=== PATIENT | female | born 1945 | race Caucasian/White ===

== ENCOUNTER 2018-10-21 15:35 | Emergency (ER) | payer MEDICARE ==
[~2018-10-21] VITALS: Ht 160 cm; Wt 52.6 kg
[2018-10-21] MEDS ORDERED: SODIUM CHLORIDE FLUSH 10ML SYR IVF ONE (16:00)
[2018-10-21] MEDS ORDERED: ONDANSETRON 2MG/ML, 2ML IVPush ONE (16:00)
[2018-10-21] MEDS ORDERED: MORPHINE SULFATE 4 MG/ML, 1ML IVPush PRN (16:00)
[2018-10-21] MEDS ORDERED: ONDANSETRON 2MG/ML, 2ML ONE (16:12)
[2018-10-21] MEDS ORDERED: MORPHINE SULFATE 4 MG/ML, 1ML ONE (16:13)
--- NOTE | 2018-10-21 16:23 | NUR ---
PT BIB [facility] WITH FRIEND FOR LEFT SIDED HIP SINCE YESTERDAY. WHEN ASKED TO POINT TO THE SITE OF THE PAIN, PT POINTS TO LEFT FLANK AREA THEN MIGRATED DOWN TO LEFT HIP. PT DENEIS ANY URINARY SYMPTOMS, ABD PAIN, N/V/D, OR ANF FEVERS/CHILLS. PT MEDICATED ORDERED.
[2018-10-21 16:27] LABS: BASOPHILS # (AUTO) 0.02 x10^3/uL (0-0.1); BASOPHILS % (AUTO) 0 % (0-1); EOSINOPHILS # (AUTO) 0.07 x10^3/uL (0-0.4); EOSINOPHILS % (AUTO) 1 % (1-7); LYMPHOCYTES # (AUTO) 0.96 x10^3/uL (1-3.4); LYMPHOCYTES % (AUTO) 13 % (22-44); MD NO; MEAN CORPUSCULAR HEMOGLOBIN 32.4 pg (27.0-34.8); MEAN CORPUSCULAR HGB CONC 33.3 g/dL (32.4-35.8); MEAN CORPUSCULAR VOLUME 97.3 fL (80-100); MEAN PLATELET VOLUME 10.3 fL (7.4-10.4); MONOCYTES # (AUTO) 0.44 x10^3/uL (0.2-0.8); MONOCYTES % (AUTO) 6 % (2-9); NEUTROPHILS # (AUTO) 6.02 x10^3/uL (1.8-6.8); NEUTROPHILS % (AUTO) 80 % (42-75); PLATELET COUNT 183 x10^3/uL (130-400)
[2018-10-21 16:30] LABS: ALANINE AMINOTRANSFERASE 17 U/L (12-78); ALBUMIN 4.3 g/dL (3.4-5.0); ANION GAP 10 mmol/L (5-15); CALCIUM 9.4 mg/dL (8.5-10.1); CHLORIDE 109 mmol/L (98-107)
[2018-10-21 16:33] LABS: ALKALINE PHOSPHATASE 88 U/L (45-117); CREATININE 0.68 mg/dL (0.55-1.02)
[2018-10-21] MEDS ORDERED: OMNIPAQUE 350 MG/ML, 100ML BOTTLE ONE (17:11)
--- NOTE | 2018-10-21 17:25 | NUR ---
PT BACK FROM CT AND ATTEMPTING UA SPECIMEN.
--- NOTE | 2018-10-21 17:32 | NUR ---
TASK RN: 2L NC PLACED FOR RA O2 SAT OF 89%. ALL VSS ON 2LNC. NO NEEDS EXPRESSED. CALL LIGHT WITHIN REACH. AWAITING CT.
--- NOTE | 2018-10-21 17:59 | NUR ---
task rn: edmd present for extensive discussion of test results. pt declining admit at this time. edmd will initiate a palliative care consult with follow up at home. plan to dc.
[2018-10-21 18:12] LABS: MICROSCOPIC NOT IND
[2018-10-21 18:16] LABS: CULTURE INDICATED? NO
[2018-10-21 18:28] VITALS: BP 156/79
== END 2018-10-21 18:42 | disposition home or self-care (01) ==
LOC: ED 17:41
DX: R19.00 Intra-abdominal and pelvic swelling, mass and lump, unspecified site (principal); R10.9 Unspecified abdominal pain; Z90.710 Acquired absence of both cervix and uterus
CPT/HCPCS: 36415; 74177; 80053; 81003; 83690; 85025; 96374; 96375; 99284; J2270; J2405; Q9967

== ENCOUNTER 2019-08-28 17:24 | Emergency (ER) | payer MEDICARE ==
[~2019-08-28] VITALS: Ht 160 cm; Wt 54.7 kg
[2019-08-28 17:28] VITALS: BP 159/74
[2019-08-28] MEDS ORDERED: [UNRECOGNIZED DRUG - OTHER] PO (17:50)
--- NOTE | 2019-08-28 18:33 | NUR ---
PT LAYING IN BED, IV ACCESS ESTABLISHED, VSS, FRIEND REMAINS AT BEDSIDE.
[2019-08-28 18:48] LABS: BASOPHILS # (AUTO) 0.02 x10^3/uL (0-0.1); BASOPHILS % (AUTO) 0 % (0-1); EOSINOPHILS % (AUTO) 3 % (1-7); LYMPHOCYTES # (AUTO) 0.94 x10^3/uL (1-3.4); LYMPHOCYTES % (AUTO) 16 % (22-44); MD NO; MEAN CORPUSCULAR HEMOGLOBIN 31.7 pg (27.0-34.8); MEAN CORPUSCULAR VOLUME 96.1 fL (80-100); MEAN PLATELET VOLUME 9.8 fL (7.4-10.4); MONOCYTES # (AUTO) 0.42 x10^3/uL (0.2-0.8); MONOCYTES % (AUTO) 7 % (2-9); NEUTROPHILS # (AUTO) 4.43 x10^3/uL (1.8-6.8); NEUTROPHILS % (AUTO) 74 % (42-75); PLATELET COUNT 218 x10^3/uL (130-400); RED BLOOD COUNT 4.27 x10^6/uL (3.82-5.3); RED CELL DISTRIBUTION WIDTH 13.9 % (9.6-15.2)
[2019-08-28 18:55] LABS: ALANINE AMINOTRANSFERASE 16 U/L (12-78); ALBUMIN 3.7 g/dL (3.4-5.0); ANION GAP 7 mmol/L (5-15); CALCIUM 9.7 mg/dL (8.5-10.1); CHLORIDE 107 mmol/L (98-107)
[2019-08-28 18:58] LABS: ALKALINE PHOSPHATASE 98 U/L (45-117); BILIRUBIN,TOTAL 0.7 mg/dL (0.2-1.0); CREATININE 0.73 mg/dL (0.55-1.02); TOTAL PROTEIN 8.8 g/dL (6.4-8.2)
[2019-08-28] MEDS ORDERED: SODIUM CHLORIDE FLUSH 10ML SYR IVF ONE (19:00)
--- NOTE | 2019-08-28 19:00 | NUR ---
PT SITTING IN BED, NO SIGNS OF DISTRESS, FRIEND REMAINS AT BEDSIDE.
--- NOTE | 2019-08-28 19:03 | NUR ---
Report received from YG Ohara. This RN to assume care. Patient resting in [facility] with no complaints. Awaiting CT.
--- NOTE | 2019-08-28 20:13 | NUR ---
Discharge instructions given. All questions and concerns addressed. Patient ambulatory with a steady gait. Belongings with patient.
[2019-08-28] MEDS ORDERED: OMNIPAQUE 350 MG/ML, 100ML BOTTLE ONE (21:44)
== END 2019-08-28 20:14 ==
LOC: ED 20:08
DX: C76.8 Malignant neoplasm of other specified ill-defined sites (principal)
CPT/HCPCS: 36415; 74177; 80053; 85025; 99285; Q9967

== ENCOUNTER 2019-09-12 08:10 | Outpatient (CLI) | payer MEDICARE ==
[~2019-09-12 08:10] MED LIST: [UNRECOGNIZED DRUG - OTHER] PO
== END 2019-09-12 23:59 | disposition home or self-care (01) ==
LOC: WOUND 08:10
PROVIDERS: ATTEND Internal Medicine
DX: L89.143 Pressure ulcer of left lower back, stage 3 (principal); C64.1 Malignant neoplasm of right kidney, except renal pelvis; E44.0 Moderate protein-calorie malnutrition; Z90.49 Acquired absence of other specified parts of digestive tract
CPT/HCPCS: 97597; G0463; 99215

== ENCOUNTER → 2019-09-19 | Outpatient (CLI) | payer MEDICARE | END | disposition home or self-care (01) | LOC: WOUND 08:41 | PROVIDERS: ATTEND Internal Medicine | DX: L89.143 Pressure ulcer of left lower back, stage 3 (principal); L89.893 Pressure ulcer of other site, stage 3; E44.0 Moderate protein-calorie malnutrition; C64.1 Malignant neoplasm of right kidney, except renal pelvis; Z68.21 Body mass index [BMI] 21.0-21.9, adult; Z90.49 Acquired absence of other specified parts of digestive tract | CPT/HCPCS: 97597 ==

== ENCOUNTER → 2019-09-21 | Outpatient (CLI) | payer MEDICARE ==
[~2019-09-21] MED LIST changes: +FURO-93 PO; +OXYC-302 PO; +POTA10CA PO
== END | disposition home or self-care (01) ==
LOC: CFH 09:46
PROVIDERS: ATTEND Internal Medicine Cardiovascular Disease
DX: I08.8 Other rheumatic multiple valve diseases (principal); E07.9 Disorder of thyroid, unspecified; R91.1 Solitary pulmonary nodule; N28.89 Other specified disorders of kidney and ureter
CPT/HCPCS: 78815; 93306; A9552

== ENCOUNTER 2019-09-22 07:17 | Day surgery (SDC) | payer MEDICARE ==
[~2019-09-22] VITALS: Ht 160 cm; Wt 53.8 kg
[~2019-09-22 07:17] MED LIST changes: -FURO-93 PO; -OXYC-302 PO; -POTA10CA PO
[2019-09-22 07:54] VITALS: BP 120/72
[2019-09-22] MEDS ORDERED: FURO-93 PO (07:57)
[2019-09-22] MEDS ORDERED: POTA10CA PO (07:57)
[2019-09-22] MEDS ORDERED: OXYC-302 PO (07:57)
[2019-09-22] MEDS ORDERED: SODIUM CHLORIDE 0.9% 1,000 ML IV SCH (08:30)
[2019-09-22] MEDS ORDERED: LIDOCAINE 1%, 10ML ONE (08:48)
== END 2019-09-22 10:35 | disposition home or self-care (01) ==
LOC: OUT 07:17 → EDSTATUS 09:00 → OUT 10:35
PROVIDERS: ATTEND Family Medicine
DX: R22.2 Localized swelling, mass and lump, trunk (principal); Z79.891 Long term (current) use of opiate analgesic; Z85.3 Personal history of malignant neoplasm of breast; Z85.068 Personal history of other malignant neoplasm of small intestine; Z90.710 Acquired absence of both cervix and uterus; Z90.722 Acquired absence of ovaries, bilateral
CPT/HCPCS: 20206; 76942; 88305; 88341; 88342; J7030

== ENCOUNTER → 2019-09-26 | Outpatient (CLI) | payer MEDICARE ==
[~2019-09-26] MED LIST changes: +FURO-93 PO; +OXYC-302 PO; +POTA10CA PO
== END | disposition home or self-care (01) ==
LOC: WOUND 09:02
PROVIDERS: ATTEND Internal Medicine
DX: L89.143 Pressure ulcer of left lower back, stage 3 (principal); L89.893 Pressure ulcer of other site, stage 3; E44.0 Moderate protein-calorie malnutrition; C64.1 Malignant neoplasm of right kidney, except renal pelvis; Z68.21 Body mass index [BMI] 21.0-21.9, adult; Z90.49 Acquired absence of other specified parts of digestive tract
CPT/HCPCS: 97597; 97598

== ENCOUNTER 2019-09-28 05:03 | Emergency (ER) | payer MEDICARE ==
[~2019-09-28] VITALS: Ht 160 cm; Wt 54.0 kg
--- NOTE | 2019-09-28 05:23 | NUR ---
Patient presents to ER c/o nausea. Patient states around 0400 patient awoke with her heart racing and nausea. The heart racing has since resolved. Patient denies CP or abd pain. 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
[2019-09-28] MEDS ORDERED: ONDANSETRON 2MG/ML, 2ML ONE (05:32)
[2019-09-28] MEDS ORDERED: ONDANSETRON ODT 4 MG PO ONE (06:00)
[2019-09-28] MEDS ORDERED: ONDANSETRON 2MG/ML, 2ML IVPush ONE (06:00)
[2019-09-28] MEDS ORDERED: SODIUM CHLORIDE 0.9%, 500ML IVBOLUS ONE (06:00)
[2019-09-28 06:03] LABS: BASOPHILS # (AUTO) 0.02 x10^3/uL (0-0.1); BASOPHILS % (AUTO) 0 % (0-1); EOSINOPHILS # (AUTO) 0.15 x10^3/uL (0-0.4); EOSINOPHILS % (AUTO) 3 % (1-7); LYMPHOCYTES # (AUTO) 0.84 x10^3/uL (1-3.4); LYMPHOCYTES % (AUTO) 14 % (22-44); MD NO; MEAN CORPUSCULAR HEMOGLOBIN 31.2 pg (27.0-34.8); MEAN CORPUSCULAR HGB CONC 32.6 g/dL (32.4-35.8); MEAN CORPUSCULAR VOLUME 95.8 fL (80-100); MEAN PLATELET VOLUME 9.3 fL (7.4-10.4); MONOCYTES # (AUTO) 0.39 x10^3/uL (0.2-0.8); MONOCYTES % (AUTO) 6 % (2-9); NEUTROPHILS # (AUTO) 4.69 x10^3/uL (1.8-6.8); NEUTROPHILS % (AUTO) 77 % (42-75); PLATELET COUNT 226 x10^3/uL (130-400); RED BLOOD COUNT 3.66 x10^6/uL (3.82-5.3); RED CELL DISTRIBUTION WIDTH 13.8 % (9.6-15.2)
--- NOTE | 2019-09-28 06:11 | NUR ---
Patient states she has no more nausea. She is unable to urinate at this time. Will reevaluate after fluids.
[2019-09-28 06:14] LABS: ALANINE AMINOTRANSFERASE 20 U/L (12-78); ANION GAP 7 mmol/L (5-15); CALCIUM 8.9 mg/dL (8.5-10.1); CHLORIDE 111 mmol/L (98-107); CREATININE 0.61 mg/dL (0.55-1.02)
[2019-09-28 06:16] LABS: ALKALINE PHOSPHATASE 85 U/L (45-117); BILIRUBIN,TOTAL 0.3 mg/dL (0.2-1.0); TOTAL PROTEIN 7.6 g/dL (6.4-8.2)
[2019-09-28 07:28] VITALS: BP 102/52
--- NOTE | 2019-09-28 07:29 | NUR ---
ATTEMPTED TO WEAN PT OFF NC O2, PT SATING 84% ON RA. ERMD UPDATED.
[2019-09-28] MEDS ORDERED: OMNIPAQUE 350 MG/ML, 75ML BOTTLE ONE (08:19)
[2019-09-28] MEDS ORDERED: MORPHINE SULFATE 4 MG/ML, 1ML IVPush ONE (08:30)
== END 2019-09-28 09:01 | disposition home or self-care (01) ==
LOC: ED 05:58
DX: R22.41 Localized swelling, mass and lump, right lower limb (principal); F41.1 Generalized anxiety disorder; R06.02 Shortness of breath; R00.0 Tachycardia, unspecified; R11.0 Nausea; R00.2 Palpitations; M45.9 Ankylosing spondylitis of unspecified sites in spine
CPT/HCPCS: 36415; 71275; 80053; 83735; 85025; 85379; 93005; 96374; 99285; J2405; J7040; Q9967

== ENCOUNTER 2019-10-02 18:49 | Emergency (ER) | payer MEDICARE ==
[~2019-10-02] VITALS: Ht 160 cm; Wt 55.9 kg
[2019-10-02] MEDS ORDERED: ONDANSETRON 2MG/ML, 2ML ONE (19:24)
[2019-10-02] MEDS ORDERED: MORPHINE SULFATE 4 MG/ML, 1ML ONE (19:24)
[2019-10-02] MEDS ORDERED: TRANEXAMIC ACID 100 MG/ML, 10ML ONE (19:25)
[2019-10-02] MEDS ORDERED: SODIUM CHLORIDE FLUSH 10ML SYR IVF ONE (19:30)
[2019-10-02] MEDS ORDERED: MORPHINE SULFATE 4 MG/ML, 1ML IVPush PRN (19:30)
[2019-10-02] MEDS ORDERED: TRANEXAMIC ACID 100 MG/ML, 10ML TP ONE (19:30)
[2019-10-02] MEDS ORDERED: ONDANSETRON 2MG/ML, 2ML IVPush ONE (19:30)
[2019-10-02 19:35] LABS: BASOPHILS # (AUTO) 0.01 x10^3/uL (0-0.1); BASOPHILS % (AUTO) 0 % (0-1); EOSINOPHILS # (AUTO) 0.14 x10^3/uL (0-0.4); EOSINOPHILS % (AUTO) 2 % (1-7); LYMPHOCYTES # (AUTO) 0.95 x10^3/uL (1-3.4); LYMPHOCYTES % (AUTO) 15 % (22-44); MD NO; MEAN CORPUSCULAR HEMOGLOBIN 31.2 pg (27.0-34.8); MEAN CORPUSCULAR HGB CONC 32.5 g/dL (32.4-35.8); MEAN CORPUSCULAR VOLUME 95.9 fL (80-100); MEAN PLATELET VOLUME 8.9 fL (7.4-10.4); MONOCYTES # (AUTO) 0.48 x10^3/uL (0.2-0.8); MONOCYTES % (AUTO) 8 % (2-9); NEUTROPHILS # (AUTO) 4.71 x10^3/uL (1.8-6.8); NEUTROPHILS % (AUTO) 75 % (42-75); PLATELET COUNT 225 x10^3/uL (130-400); RED BLOOD COUNT 3.38 x10^6/uL (3.82-5.3); RED CELL DISTRIBUTION WIDTH 14.2 % (9.6-15.2)
[2019-10-02 19:44] LABS: ALANINE AMINOTRANSFERASE 23 U/L (12-78); ALBUMIN 2.9 g/dL (3.4-5.0); ANION GAP 4 mmol/L (5-15); CALCIUM 8.4 mg/dL (8.5-10.1); CHLORIDE 105 mmol/L (98-107); CREATININE 0.68 mg/dL (0.55-1.02)
[2019-10-02 19:45] LABS: INTERNATIONAL NORMALIZED RATIO 1.06 (0.93-1.1); PROTHROMBIN TIME 11.2 Seconds (9.6-11.5)
[2019-10-02 19:46] LABS: ALKALINE PHOSPHATASE 80 U/L (45-117); BILIRUBIN,TOTAL 0.4 mg/dL (0.2-1.0); TOTAL PROTEIN 7.2 g/dL (6.4-8.2)
--- NOTE | 2019-10-02 20:15 | NUR ---
PT PRESENTS TO THE ED WITH C/O BLEEDING FROM LEFT HIP WOUND. PT REPORTS SHE HAS A TUMOR ON LEFT HIP THAT HAD A BIOPSY DONE LAST WEEK. SISTER IN LAW/CAREGIVER REPORTS THAT WOUND START BLEEDING HEAVILY JUST S[employer]IOR [employer]NER. IV STARTED IN R WRIST. PT MEDICATED WITH ZOFRAN/MORPHINE. TXA APPLIED PER DRIVER MATERIAL HANDLER. PT RESTING WITH CALL LIGHT IN PLACE.
[2019-10-02] MEDS ORDERED: MICROFIBRILLAR COLLAGEN 1 GM TP ONE (20:26)
[2019-10-02] MEDS ORDERED: MICROFIBRILLAR COLLAGEN 0.5GM/PACK TP ONE (20:30)
[2019-10-02 21:44] VITALS: BP 126/78
== END 2019-10-02 21:48 | disposition home or self-care (01) ==
LOC: ED 21:20
DX: T81.30XA Disruption of wound, unspecified, initial encounter (principal); R22.42 Localized swelling, mass and lump, left lower limb; I38 Endocarditis, valve unspecified
CPT/HCPCS: 36415; 80053; 85025; 85610; 85730; 96374; 96375; 99284; J2270; J2405

== ENCOUNTER 2019-10-07 19:12 | Emergency (ER) | payer MEDICARE ==
[~2019-10-07] VITALS: Ht 160 cm; Wt 55.9 kg
--- NOTE | 2019-10-07 19:41 | NUR ---
LEFT LOWER BACK WOUND DEHISCENCE SEEN HERE FORE THE SAME ON THURSDAY. PER PT, WOUND WILL NOT STOP BLEEDING AND PT IS COMPLAINING OF "PAIN AND BURNING" TO SITE.WOUND ASSESSED AND OOZING THROUGH GAUZE. PLACED PT ON MONITOR. WILL CONTINUE TO MONITOR PT.
[2019-10-07] MEDS ORDERED: ONDANSETRON ODT 4 MG PO ONE (20:30)
[2019-10-07] MEDS ORDERED: TRANEXAMIC ACID 100 MG/ML, 10ML TP ONE (20:30)
[2019-10-07] MEDS ORDERED: HYDROmorphone 1 MG/ML, 1ML INJ IM ONE (20:30)
[2019-10-07] MEDS ORDERED: MICROFIBRILLAR COLLAGEN 1 GM TP ONE ×2 (20:30→20:37)
[2019-10-07] MEDS ORDERED: ONDANSETRON ODT 4 MG ONE (20:36)
[2019-10-07] MEDS ORDERED: TRANEXAMIC ACID 100 MG/ML, 10ML ONE ×2 (20:36→23:13)
[2019-10-07] MEDS ORDERED: HYDROmorphone 1 MG/ML, 1ML INJ ONE (20:38)
[2019-10-07] MEDS ORDERED: OXYcodone/APAP 5/325MG TABLET PO ONE (22:00)
[2019-10-07] MEDS ORDERED: L.E.T SOLUTION TP ONE ×2 (22:24→22:30)
[2019-10-07] MEDS ORDERED: LIDOCAINE 1%-EPI 1:100K, 20ML ONE (22:24)
[2019-10-07] MEDS ORDERED: LIDOCAINE 1%-EPI 1:100K, 20ML INFIL ONE (22:30)
[2019-10-07 23:00] VITALS: BP 106/57
--- NOTE | 2019-10-07 23:21 | NUR ---
ATTEMPTED TO CONTROL BLEEDING FROM WOUND WITH TXA. IT WAS UNSUCCESFUL. RUG INSPECTOR PLACED 3 SUTURES AT SITE. BLEEDING SLOWED. PLACED TXA GAUZE ON TOP OF SUTURES. WILL CONTINUE TO MONITOR. PT TOLERATED PROCEDURE WELL.
[2019-10-07] MEDS ORDERED: OXYcodone/APAP 5/325MG TABLET ONE (23:34)
--- NOTE | 2019-10-07 23:47 | NUR ---
Report received from YG Harding. This RN to assume care. Awaiting discharge after reevaluation of wound after TXA.
--- NOTE | 2019-10-08 00:26 | NUR ---
Discharge instructions given. All questions and concerns addressed. Patient ambulatory with a steady gait. Belongings with patient.
== END 2019-10-08 00:35 | disposition home or self-care (01) ==
LOC: ED 23:24
DX: T81.30XA Disruption of wound, unspecified, initial encounter (principal); S71.012A Laceration without foreign body, left hip, initial encounter; Z76.0 Encounter for issue of repeat prescription; X58.XXXA Exposure to other specified factors, initial encounter; Y93.89 Activity, other specified; Y92.89 Other specified places as the place of occurrence of the external cause; Y99.8 Other external cause status
CPT/HCPCS: 12001; 96372; 99284; J1170; Q0162

== ENCOUNTER 2019-10-14 08:31 | Outpatient (CLI) | payer MEDICARE ==
[~2019-10-14 08:31] MED LIST changes: +REGADENOSON 0.4 MG/5 ML SYRINGE ONE
== END 2019-10-14 23:59 | disposition home or self-care (01) ==
LOC: CFH 08:31
PROVIDERS: ATTEND Internal Medicine Cardiovascular Disease
DX: R01.1 Cardiac murmur, unspecified (principal); R94.31 Abnormal electrocardiogram [ECG] [EKG]
CPT/HCPCS: 78452; 93017; A9502; J2785

== ENCOUNTER 2019-10-17 08:32 | Outpatient (CLI) | payer MEDICARE ==
[~2019-10-17 08:32] MED LIST changes: -REGADENOSON 0.4 MG/5 ML SYRINGE ONE
== END 2019-10-17 23:59 | disposition home or self-care (01) ==
LOC: WOUND 08:32
PROVIDERS: ATTEND Internal Medicine
DX: L89.143 Pressure ulcer of left lower back, stage 3 (principal); L89.893 Pressure ulcer of other site, stage 3; C64.1 Malignant neoplasm of right kidney, except renal pelvis; E44.0 Moderate protein-calorie malnutrition; Z68.21 Body mass index [BMI] 21.0-21.9, adult; Z90.49 Acquired absence of other specified parts of digestive tract; Z90.710 Acquired absence of both cervix and uterus; Z85.3 Personal history of malignant neoplasm of breast; Z85.068 Personal history of other malignant neoplasm of small intestine; Z79.891 Long term (current) use of opiate analgesic
CPT/HCPCS: 97597; 97598

== ENCOUNTER → 2019-10-24 | Outpatient (CLI) | payer MEDICARE | END | disposition home or self-care (01) | LOC: WOUND 08:28 | PROVIDERS: ATTEND Internal Medicine | DX: L89.143 Pressure ulcer of left lower back, stage 3 (principal); L89.893 Pressure ulcer of other site, stage 3; C64.1 Malignant neoplasm of right kidney, except renal pelvis; M45.9 Ankylosing spondylitis of unspecified sites in spine; E44.0 Moderate protein-calorie malnutrition; Z68.21 Body mass index [BMI] 21.0-21.9, adult; Z90.49 Acquired absence of other specified parts of digestive tract; Z90.710 Acquired absence of both cervix and uterus; Z85.3 Personal history of malignant neoplasm of breast; Z85.068 Personal history of other malignant neoplasm of small intestine; Z79.891 Long term (current) use of opiate analgesic | CPT/HCPCS: 97597; 97598 ==

== ENCOUNTER 2019-10-26 12:51 | Outpatient (CLI) | payer MEDICARE | END 2019-10-26 23:59 | disposition home or self-care (01) | LOC: CFH 12:51 | PROVIDERS: ATTEND Family Medicine | DX: E04.1 Nontoxic single thyroid nodule (principal); N28.89 Other specified disorders of kidney and ureter; R91.8 Other nonspecific abnormal finding of lung field; R91.1 Solitary pulmonary nodule | CPT/HCPCS: 76536; 76642; 77066; G0279 ==

== ENCOUNTER → 2019-11-02 | Outpatient (CLI) | payer MEDICARE | END | disposition home or self-care (01) | LOC: WOUND 09:06 | PROVIDERS: ATTEND Internal Medicine | DX: L89.143 Pressure ulcer of left lower back, stage 3 (principal); L89.893 Pressure ulcer of other site, stage 3; C64.1 Malignant neoplasm of right kidney, except renal pelvis; M45.9 Ankylosing spondylitis of unspecified sites in spine; E44.0 Moderate protein-calorie malnutrition; D44.0 Neoplasm of uncertain behavior of thyroid gland; Z68.21 Body mass index [BMI] 21.0-21.9, adult; Z90.49 Acquired absence of other specified parts of digestive tract; Z90.710 Acquired absence of both cervix and uterus; Z85.3 Personal history of malignant neoplasm of breast; Z85.068 Personal history of other malignant neoplasm of small intestine; Z79.891 Long term (current) use of opiate analgesic; F41.1 Generalized anxiety disorder | CPT/HCPCS: 97597; 97598 ==